=== PATIENT | female | born 1995 | race African-American/Black ===

== ENCOUNTER 2022-06-27 18:52 | Emergency (ER) | payer OTHER ==
[2022-06-27 18:59] VITALS: BP 130/86; PULSE 91; RESP 18; TEMP 98.3; BMI 30.9
== END 2022-06-27 20:33 | disposition home or self-care (01) ==
LOC: JERFT 18:52
DX: Z20.2 Contact with and (suspected) exposure to infections with a predominantly sexual mode of transmission (principal)
CPT/HCPCS: 36415; 87529; 99283-25